=== PATIENT | female | born 1970 | race Caucasian/White ===

== ENCOUNTER 2018-04-15 21:25 | Emergency (ER) | END 2018-04-16 00:47 | disposition home or self-care (01) ==

== ENCOUNTER 2019-03-07 16:20 | Emergency (ER) | payer SELFPAY ==
[~2019-03-07] VITALS: Ht 162.6 cm; Wt 73.5 kg
[~2019-03-07 16:20] MED LIST: ACET-141 PO; AMLO-147 PO; DIPH25CA42 PO; FIORICET PO; IBUP200C11 PO
[2019-03-07 16:55] VITALS: BP 224/93; PULSE 64; RESP 18; Ht 162.6 cm; Wt 73.5 kg
== END 2019-03-07 17:45 | disposition left against medical advice (07) ==
LOC: E/R 16:20
DX: Z53.21 Procedure and treatment not carried out due to patient leaving prior to being seen by health care provider (principal)

== ENCOUNTER 2019-03-31 18:11 | Inpatient (IN) | payer OTHER ==
[~2019-03-31] VITALS: Ht 152.4 cm; Wt 76.6 kg
[2019-03-31] MEDS ORDERED: ONDANSETRON 4 MG INJ IV STA ×2 (19:30→20:20)
[2019-03-31] MEDS ORDERED: morphine 4 MG/ML VIAL IV STA (19:30)
[2019-03-31] MEDS ORDERED: SOD CHLORIDE 0.9% 1,000 ML IV STA (19:30)
[2019-03-31] MEDS ORDERED: KETOROLAC 30 MG INJ IV ONE (22:11)
[2019-03-31] MEDS ORDERED: LORAZEPAM 2 MG INJ IV ONE (22:30)
--- NOTE | 2019-03-31 22:40 | ERD ---
ER Documentation Chief Complaint Chief Complaint ap x's 1 week HPI Patient is a 48-year-old female with hypertension who presents with abdominal pain. It is left-sided abdominal pain and she feels "a big ball" in the left side of her abdomen. She had this a long time ago and nothing has worked for the past. It came back 45 days ago and has been constant. She has a colonoscopy scheduled for May [address] Parsons. He tried "a pain med" today. She does take an antacid for acid reflux. Upon review of old medical records this is the patient's 13th visit to the ER since 2008. ROS All systems reviewed and are negative except as per history of present illness. Medications Home Meds Active Scripts Acetamin/Butalbital/Caffeine* (Fioricet*) [id number] Tab, 1 TAB PO Q6H PRN for PAIN, #15 TAB Prov:PARAMJIT DUMONT MD 04/16/18 Reported Medications Diphenhydramine Hcl (Banophen) 25 Mg Capsule, 25 MG PO TID, CAP 04/15/18 Ibuprofen* (Advil*) 200 Mg Capsule, 200 MG PO Q6H PRN for PAIN, CAP 04/15/18 Acetaminophen* (Acetaminophen*) 500 MG Extra Strength Tablet, 500 MG PO Q4H PRN for PAIN AND OR ELEVATED TEMP, TAB 04/15/18 Amlodipine Besylate* (Amlodipine Besylate*) 10 Mg Tablet, 10 MG PO DAILY, #30 TAB 04/15/18 Allergies Allergies: Coded Allergies: No Known Drug Allergies (Unverified Allergy, Unknown, 04/15/18) PMhx/Soc History of Surgery: Yes (HYSTERECTOMY) Anesthesia Reaction: No Hx Neurological Disorder: No Hx Respiratory Disorders: No Hx Cardiac Disorders: Yes (HTN) Hx Psychiatric Problems: No Hx Miscellaneous Medical Probl: Yes (KIDNEY STONES, GASTRITIS) Hx Alcohol Use: No Hx Substance Use: No Hx Tobacco Use: No Smoking Status: Never smoker FmHx Family History: diabetes Physical Exam Vitals Vital Signs Date Temp Pulse Resp B/P (MAP) Pulse Ox O2 O2 Flow FiO2 Time Delivery Rate 03/31/19 97.1 82 18 171/83 97 18:31 (112) Physical Exam Const: Moderate distress Head: Atraumatic Eyes: Normal Conjunctiva ENT: Normal External Ears, Nose and Mouth. Neck: Full range of motion. No meningismus. Resp: Clear to auscultation bilaterally Cardio: Regular rate and rhythm, no murmurs Abd: Soft, left lower quadrant tenderness to palpation without rebound or gu arding Skin: No petechiae or rashes Back: No midline or flank tenderness Ext: No cyanosis, or edema Neur: Awake and alert Psych: Normal Mood and Affect Result Diagram: 03/31/19200103/31/191956 Results 24 hrs Laboratory Tests Test 03/31/19 19:50 03/31/19 19:57 03/31/19 20:02 Urine Color STRAW Urine Clarity CLEAR Urine pH 8.0 Urine Specific [place] 1.006 Urine Ketones NEGATIVE mg/dL Urine Nitrite NEGATIVE mg/dL Urine Bilirubin NEGATIVE mg/dL Urine Urobilinogen NEGATIVE mg/dL Urine Leukocyte Esterase NEGATIVE [place]/ul Urine Microscopic RBC 1 /HPF Urine Microscopic WBC 3 /HPF Urine Squamous Epithelial Cells FEW /HPF Urine Hemoglobin 1+ mg/dL Urine Glucose NEGATIVE mg/dL Urine Total Protein NEGATIVE mg/dl Sodium Level 140 mmol/L Potassium Level 3.5 mmol/L Chloride Level 104 mmol/L Carbon Dioxide Level 28 mmol/L Anion Gap 8 Blood Urea Nitrogen 14 mg/dl Creatinine 0.96 mg/dl Est Glomerular Filtrat > 60 mL/min Rate mL/min Glucose Level 108 mg/dl Calcium Level 9.6 mg/dl Total Bilirubin 0.6 mg/dl Direct Bilirubin 0.00 mg/dl Indirect Bilirubin 0.6 mg/dl Aspartate Amino 24 IU/L Transf (AST/SGOT) Alanine 25 IU/L Aminotransferase (ALT/SGPT) Alkaline Phosphatase 57 IU/L Total Protein 7.8 g/dl Albumin 4.3 g/dl Globulin 3.50 g/dl Albumin/Globulin Ratio 1.22 Lipase 77 U/L POC Beta HCG, Qualitative NEGATIVE White Blood Count 14.8 10^3/ul Red Blood Count 4.33 10^6/ul Hemoglobin 11.8 g/dl Hematocrit 36.9 % Mean Corpuscular Volume 85.2 fl Mean Corpuscular Hemoglobin 27.3 pg Mean Corpuscular 32.0 g/dl Hemoglobin Concent Red Cell Distribution Width 13.2 % Platelet Count 278 10^3/UL Mean Platelet Volume 9.7 fl Immature Granulocytes % 0.300 % Neutrophils % 57.3 % Lymphocytes % 34.6 % Monocytes % 6.2 % Eosinophils % 1.1 % Basophils % 0.5 % Nucleated Red Blood Cells % 0.0 /100WBC Immature Granulocytes # 0.050 10^3/ul Neutrophils # 8.5 10^3/ul Lymphocytes # 5.1 10^3/ul Monocytes # 0.9 10^3/ul Eosinophils # 0.2 10^3/ul Basophils # 0.1 10^3/ul Nucleated Red Blood Cells # 0.0 10^3/ul Current Medications Medications Dose Sig/Eliot Start Time Status Last (Trade) Ordered Route PRN Stop Time Admin Dose Reason Admin Sodium 1,000 ml @ Q1H STAT 03/31/19 DC 03/31/19 Chloride 1,000 mls/hr IV 19:30 19:54 03/31/19 20:29 Morphine 4 mg ONCE STAT 03/31/19 DC 03/31/19 Sulfate IV 19:30 19:54 (morphine) 03/31/19 19:56 Ondansetron 4 mg ONCE STAT 03/31/19 DC 03/31/19 HCl (Zofran IV 19:30 19:53 Inj) 03/31/19 19:56 Ondansetron 4 mg ONCE STAT 03/31/19 DC 03/31/19 HCl (Zofran IV 20:20 21:11 Inj) 03/31/19 20:21 Ketorolac 30 mg ONCE ONCE 03/31/19 DC 03/31/19 Tromethamine IV 22:11 22:15 (Toradol) 03/31/19 22:12 Lorazepam 0.5 mg ONCE ONCE 03/31/19 DC 03/31/19 (Ativan) IV 22:30 22:15 03/31/19 22:31 Ondansetron 4 mg BRIDGE ORDER 03/31/19 HCl (Zofran PRN IV 23:00 Inj) NAUSEA/VOMITI 04/01/19 22:59 NG 650 mg ER BRIDGE 03/31/19 Acetaminophen PRN PO 23:00 (Tylenol .MILD PAIN 04/01/19 22:59 Tab) 1-3 OR TEMP Procedures/MDM CT abdomen pelvis shows acute diverticulitis per radiology. Patient is a 48-year-old female who presents with acute diverticulitis. Her white blood cell count is elevated. There is no sign of perforation or obstruction at this time. The patient has persistent nausea and pain as well as vomiting and will be admitted to the care of Dr. Walton from the panel team to a medical surgical bed. The patient was given multiple doses of pain medication and antinausea medicine but is still having symptoms. I doubt appendicitis, cholecystitis, pancreatitis, or bowel obstruction. Departure Diagnosis: Primary Impression: Diverticulitis Additional Impression: Abdominal pain Abdominal location: left lower quadrant Qualified Codes: R10.32 - Left lower quadrant pain Condition: ADOLFO Barton MD March 31, 2019 22:40
[2019-03-31] MEDS ORDERED: ACETAMINOPHEN 325 MG TAB PO PRN (23:00)
[2019-03-31] MEDS ORDERED: ONDANSETRON 4 MG INJ IV PRN (23:00)
[2019-03-31] MEDS ORDERED: NACL 0.9% 3 ML SYG IV SCH (23:00)
[2019-03-31] MEDS ORDERED: morphine 2 MG INJ IV PRN (23:00)
[2019-03-31] MEDS: CIPROFLOXACIN 400MG/D5W 200 ML IVPB SCH (23:08)
[2019-03-31] MEDS: SOD CHLORIDE 0.9% 1,000 ML IV SCH (23:09)
[2019-04-01 00:47] VITALS: BP 157/70; PULSE 67; RESP 16
[2019-04-01 00:59] VITALS: Ht 152.4 cm; Wt 76.6 kg
--- NOTE | 2019-04-01 01:13 | HP ---
Date/Time of Note Date/Time of Note DATE: 04/01/19 TIME: 01:13 Assessment/Plan VTE Prophylaxis SCD applied (from Nsg): Yes Pharmacological prophylaxis: NA/contraindicated Pharm contraindication: low risk/ambulating Lines/Catheters IV Catheter Type (from Nrsg): Saline Lock Assessment/Plan Hospital Course This is a 48-year-old female being admitted to the [facility] floor for: #1 acute diverticulitis: No signs of perforation. Cipro and Flagyl IV. IV fluid hydration with normal saline. N.p.o. except meds. Bowel rest. Pain management. #2 chronic constipation: At the current time will hold MiraLAX given that she did take it at home and it aggravated her stomach. Will await improvement in her diverticulitis symptoms before initiating any further bowel regimen. #3 hypertension: Resume home blood pressure medications, PRN hydralazine #4 obesity: We will check a hemoglobin A1c, lipid panel, TSH #5 DVT GI prophylaxis: SCDs, no GI prophylaxis indicated Further treatment strategy will be implemented as per the clinical course Result Diagram: 03/31/19200103/31/191956 Results 24hrs Laboratory Tests Test 03/31/19 19:50 03/31/19 19:57 03/31/19 20:02 Urine Color STRAW Urine Clarity CLEAR Urine pH 8.0 Urine Specific [place] 1.006 Urine Ketones NEGATIVE Urine Nitrite NEGATIVE Urine Bilirubin NEGATIVE Urine Urobilinogen NEGATIVE Urine Leukocyte Esterase NEGATIVE Urine Microscopic RBC 1 Urine Microscopic WBC 3 Urine Squamous Epithelial Cells FEW Urine Hemoglobin 1+ H Urine Glucose NEGATIVE Urine Total Protein NEGATIVE Sodium Level 140 Potassium Level 3.5 Chloride Level 104 Carbon Dioxide Level 28 Anion Gap 8 Blood Urea Nitrogen 14 Creatinine 0.96 Est Glomerular Filtrat Rate mL/min > 60 Glucose Level 108 Calcium Level 9.6 Total Bilirubin 0.6 Direct Bilirubin 0.00 Indirect Bilirubin 0.6 Aspartate Amino Transf (AST/SGOT) 24 Alanine Aminotransferase (ALT/SGPT) 25 Alkaline Phosphatase 57 Total Protein 7.8 Albumin 4.3 Globulin 3.50 H Albumin/Globulin Ratio 1.22 Lipase 77 POC Beta HCG, Qualitative NEGATIVE White Blood Count 14.8 #H Red Blood Count 4.33 Hemoglobin 11.8 L Hematocrit 36.9 L Mean Corpuscular Volume 85.2 Mean Corpuscular Hemoglobin 27.3 L Mean Corpuscular Hemoglobin Concent 32.0 Red Cell Distribution Width 13.2 Platelet Count 278 Mean Platelet Volume 9.7 Immature Granulocytes % 0.300 Neutrophils % 57.3 Lymphocytes % 34.6 Monocytes % 6.2 Eosinophils % 1.1 Basophils % 0.5 Nucleated Red Blood Cells % 0.0 Immature Granulocytes # 0.050 H Neutrophils # 8.5 H Lymphocytes # 5.1 H Monocytes # 0.9 Eosinophils # 0.2 Basophils # 0.1 Nucleated Red Blood Cells # 0.0 HPI/ROS Admit Date/Time Admit Date/Time March 31, 2019 at 22:32 Hx of Present Illness Chief complaint: Abdominal pain This is a 48-year female with a history of hypertension as well as constipation who presented to the emergency department complaining of abdominal pain x1 week. Patient reported abdominal pain across her lower abdomen and a ball-like sensation in her left side. She reports that she has been dealing with constipation for sometimes and usually takes MiraLAX. She did report that she took MiraLAX recently but it seemed to aggravate her symptoms. She does follow with a GI doctor. She does have an upcoming colonoscopy with her GI doctor in April. She did report subjective fever at home as well as nausea and vomiting. Allergies: Nuts Medications: See MAR ROS Const: As per HPI Eyes : No pain discharge or redness or change in visual acuity ENT: No pain, sore throat, congestion, congestion, dysphagia or discharge Respiratory: No shortness of breath, cough, sputum, wheezing, or pleuritic pain Cardiovascular: No chest pain, palpitation, PND, or edema GI : As per HPI Genitourinary: No dysuria, hematuria, flank pain , discharge or CVA tenderness Musculoskeletal: No joint pain, back pain, neck pain, restricted range of motion in neck or joints Skin: No rash, bruising or hives Neuro: No headache, dizziness, syncope, seizure, focal weakness Endocrine: No polyuria, polydipsia, temperature intolerance Psych: No hallucination, depression, anxiety or suicidal ideation PMH/Family/Social Past Medical History Hypertension, gastritis, constipation Medications Current Medications Ondansetron HCl (Zofran Inj) 4 mg BRIDGE ORDER PRN IV NAUSEA/VOMITING; Start 03/31/19 at 23:00; Stop 04/01/19 at 22:59 Acetaminophen (Tylenol Tab) 650 mg ER BRIDGE PRN PO .MILD PAIN 1-3 OR TEMP; Start 03/31/19 at 23:00; Stop 04/01/19 at 22:59 Sodium Chloride 1,000 ml @ 100 mls/hr Q10H IV Last administered on 03/31/19at 23:09; Admin Dose 100 MLS/HR; Start 03/31/19 at 22:41 IV Flush (NS 3 ml) 3 ml PER PROTOCOL IV ; Start 03/31/19 at 23:00 Ondansetron HCl (Zofran Inj) 4 mg Q6H PRN IV NAUSEA/VOMITING; Start 03/31/19 at 23:00 Acetaminophen (Tylenol Tab) 650 mg Q6H PRN PO .PAIN 1-3 OR TEMP; Start 03/31/19 at 23:00 Morphine Sulfate (morphine) 2 mg Q4H PRN IV .SEVERE PAIN 7-10; Start 03/31/19 at 23:00 Ciprofloxacin/ Dextrose 200 ml @ 200 mls/hr Q12 IVPB Last administered on 03/31/19at 23:08; Admin Dose 200 MLS/HR; Start 03/31/19 at 23:00 Metronidazole 100 ml @ 100 mls/hr Q6 IVPB ; Start 04/01/19 at 00:00 Coded Allergies: nut - unspecified (Verified Allergy, Mild, 04/01/19) Allergic to nuts Past Surgical History Hysterectomy, left breast biopsy, hernia repair Family History Significant Family History: no pertinent family hx Social History Alcohol Use: none Smoking Status: Never smoker Drug Use: none Exam/Review of Systems Vital Signs Vitals Vital Signs Date Temp Pulse Resp B/P (MAP) Pulse Ox O2 O2 Flow FiO2 Time Delivery Rate 04/01/19 97.8 67 16 157/70 96 00:47 (99) 03/31/19 Room Air 23:46 Exam Exam General: Patient is currently lying in bed in mild distress from abdominal pain HEENT: Atraumatic, normocephalic. The pupils are equal, round and reactive. Extraocular motor are intact Neck: Supple with full range of motion. No rigidity or meningismus Chest: Nontender Lungs: Clear to auscultation bilaterally no crackles rales or wheezing Heart: Normal S1-S2, Regular rhythm and rate. No murmur, S3, or S4 Abdomen: Obese, soft , tenderness palpation across the lower abdominal quadrant greater on the left side, normal bowel sounds are present. No guarding no rebound tenderness , No masses or organomegaly. No costovertebral temporal angle mass Extremities: Normal to inspection, no edema no cyanosis Neurologic: Normal mental status, speech normal, cranial nerves II through XII are intact, motor and sensory are intact, no focal weakness Additional Comments PROCEDURE: CT ABDOMEN AND PELVIS WITHOUT CONTRAST. CLINICAL INDICATION: Abdominal pain TECHNIQUE: CT scan of the abdomen and pelvis without contrast was performed on a multidetector high-resolution CT scanner. The patient was scanned without intravenous contrast. Coronal and sagittal reformatted images were obtained from the axial source images. Images were reviewed on a high-resolution PACS workstation. The total exam CTDI equals 13.4 mGy and the total exam DLP equals 756.5 mGy-cm. One or more of the following dose reduction techniques were used: Automated exposure control. Adjustment of the mA and/or kV according to patient size. Use of iterative reconstruction technique. DICOM images are available COMPARISON: None FINDINGS: CT abdomen: The lung bases are clear. The heart size is within normal limits. There is no significant pericardial effusion. Hepatic morphology is within normal limits. There is diffuse fatty infiltration of the liver. No gross contour deforming masses. The gallbladder is within normal limits. No evidence of intrahepatic or extrahepatic biliary dilatation. The spleen and pancreas are within normal limits. Both adrenal glands are within normal limits. Both kidneys are in anatomic position. There is a left-sided nonobstructing stone measuring 4.1 mm. No evidence of ureteric calculi. No evidence of obstructive uropathy. The visualized GI tract demonstrate normal caliber loops of small and large bowel. No evidence of bowel obstruction. Stool filled loops of large bowel suggestive of constipation. The appendix is within limits. There is focal diverticulitis involving the distal left colon with minimal adjacent fatty stranding. The unenhanced aorta is unremarkable. No significant retroperitoneal lymphadenopathy. CT pelvis: Bladder is within normal limits. Uterus is within normal limits. Rectosigmoid colon demonstrates diverticulosis. No significant free fluid. No significant pelvic lymphadenopathy. The visualized osseous structures appears to be within normal limits. IMPRESSION: 1. FOCAL MILD DIVERTICULITIS INVOLVING THE DISTAL LEFT COLON WITH MINIMAL AD JACENT FATTY STRANDING. NO EVIDENCE OF PERFORATION OR FOCAL FLUID COLLECTIONS. 2. No evidence of bowel obstruction. Stool filled loops of large bowel suggestive of constipation. The appendix is within normal limits. 3. Fatty liver. 4. No evidence of free fluid or free air. No gross focal fluid collections. RPTAT: AAPP Physician Reba Date Time Electronically viewed and signed by Alcira Easley Physician on 03/31/2019 22:02 JL/ CC: ADOLFO MARIE MD [id number] SIDRA CARPIO April 01, 2019 01:13
[2019-04-01] MEDS ORDERED: ENAL20TA PO (01:14)
[2019-04-01] MEDS ORDERED: HYDR12.53 PO (01:14)
[2019-04-01] MEDS ORDERED: LORA10TA3 PO (01:14)
[2019-04-01] MEDS ORDERED: POLY238P32 PO (01:14)
[2019-04-01] MEDS ORDERED: OXYB5TAB7 PO (01:14)
[2019-04-01] MEDS ORDERED: PANT40TA4 PO (01:14)
[2019-04-01] MEDS ORDERED: ERGO500013 PO (01:14)
[2019-04-01] MEDS: SOD CHLORIDE 0.9% 1,000 ML IV SCH ×2 (01:28→16:32)
[2019-04-01] MEDS: metroNIDAZOLE 500 MG/NS (PMX) 100 ML IVPB SCH ×4 (01:29→17:14)
[2019-04-01 02:57] VITALS: BP 108/53; PULSE 58; RESP 18
[2019-04-01] MEDS: ONDANSETRON 4 MG INJ IV PRN ×2 (04:52→12:38)
[2019-04-01 07:15] VITALS: BP 131/65; PULSE 66; RESP 16
--- NOTE | 2019-04-01 09:47 | PN ---
Date/Time of Note Date/Time of Note DATE: 04/01/19 TIME: 09:47 Assessment/Plan VTE Prophylaxis SCD applied (from Nsg): Yes Pharmacological prophylaxis: NA/contraindicated Pharm contraindication: low risk/ambulating Lines/Catheters IV Catheter Type (from Nrsg): Peripheral IV Urinary Cath still in place: No Assessment/Plan Assessment/Plan 1. Acute diverticulitis - seen on CT results - continue on IV antibiotics and when pain improves and tolerating PO diet, will switch to PO antibiotics and d/c home - has appointment with Dr. Parsons for EGD/colonoscopy next month. Will need to call office given acute diverticulitis episode 2. Constipation - bowel regime on board 3. hypertension - stable - continue home medications 4. Disposition - Monitor for improvement in abdominal pain and will advance diet once able Result Diagram: 04/01/1943904/01/19439 Results 24hrs Laboratory Tests Test 03/31/19 19:50 03/31/19 19:57 03/31/19 20:02 04/01/19 04:40 Urine Color STRAW Urine Clarity CLEAR Urine pH 8.0 Urine Specific 1.006 [place] Urine Ketones NEGATIVE Urine Nitrite NEGATIVE Urine Bilirubin NEGATIVE Urine Urobilinogen NEGATIVE Urine Leukocyte NEGATIVE Esterase Urine Microscopic 1 RBC Urine Microscopic 3 WBC Urine Squamous FEW Epithelial Cells Urine Hemoglobin 1+ H Urine Glucose NEGATIVE Urine Total Protein NEGATIVE Sodium Level 140 141 Potassium Level 3.5 4.0 Chloride Level 104 108 Carbon Dioxide Level 28 27 Anion Gap 8 6 Blood Urea Nitrogen 14 15 Creatinine 0.96 0.69 Est Glomerular > 60 > 60 Filtrat Rate mL/min Glucose Level 108 133 Calcium Level 9.6 8.3 L Total Bilirubin 0.6 0.6 Direct Bilirubin 0.00 0.00 Indirect Bilirubin 0.6 0.6 Aspartate Amino 24 19 Transf (AST/SGOT) Alanine 25 24 Aminotransferase (AL T/SGPT) Alkaline Phosphatase 57 43 Total Protein 7.8 6.0 #L Albumin 4.3 3.3 # Globulin 3.50 H 2.70 Albumin/Globulin 1.22 1.22 Ratio Lipase 77 POC Beta HCG, NEGATIVE Qualitative White Blood Count 14.8 #H 11.9 H Red Blood Count 4.33 3.89 L Hemoglobin 11.8 L 10.5 L Hematocrit 36.9 L 33.6 L Mean Corpuscular 85.2 86.4 Volume Mean Corpuscular 27.3 L 27.0 L Hemoglobin Mean Corpuscular 32.0 31.3 L Hemoglobin Concent Red Cell 13.2 13.5 Distribution Width Platelet Count 278 252 Mean Platelet Volume 9.7 10.1 Immature 0.300 0.400 Granulocytes % Neutrophils % 57.3 60.2 Lymphocytes % 34.6 32.3 Monocytes % 6.2 5.5 Eosinophils % 1.1 1.1 Basophils % 0.5 0.5 Nucleated Red Blood 0.0 0.0 Cells % Immature 0.050 H 0.050 H Granulocytes # Neutrophils # 8.5 H 7.2 Lymphocytes # 5.1 H 3.8 H Monocytes # 0.9 0.7 Eosinophils # 0.2 0.1 Basophils # 0.1 0.1 Nucleated Red Blood 0.0 0.0 Cells # Hemoglobin A1c 6.3 H Magnesium Level 1.8 Triglycerides Level 122 Cholesterol Level 152 LDL Cholesterol, 85 Calculated HDL Cholesterol 43 Cholesterol/HDL 3.5 Ratio Thyroid Stimulating 2.050 Hormone (TSH) Subjective 24 Hr Interval Summary Free Text/Dictation Patient still with pain and mild nausea but requesting to drink water. Also complaining of constipation for the past 3 days. Exam/Review of Systems Exam Vitals Vital Signs Date Temp Pulse Resp B/P (MAP) Pulse Ox O2 O2 Flow FiO2 Time Delivery Rate 04/01/19 97.9 66 16 131/65 95 Room Air 07:15 (87) Intake and Output 03/31/19 03/31/19 04/01/19 1515:00 23:00 07:00 IntakeIntake Total 1400 ml BalanceBalance 1400 ml Exam General: Patient is sitting up in bed, mild distress secondary to pain Neck: Supple Chest: Nontender Lungs: Clear to auscultation bilaterally no crackles rales or wheezing Heart: Normal S1-S2, Regular rhythm and rate. No murmur, S3, or S4 Abdomen: Obese, soft , tenderness palpation LLQ, normal bowel sounds are present. No guarding no rebound tenderness Extremities: Normal to inspection, no edema no cyanosis Results Results 24hrs Laboratory Tests Test 03/31/19 19:50 03/31/19 19:57 03/31/19 20:02 04/01/19 04:40 Urine Color STRAW Urine Clarity CLEAR Urine pH 8.0 Urine Specific 1.006 [place] Urine Ketones NEGATIVE Urine Nitrite NEGATIVE Urine Bilirubin NEGATIVE Urine Urobilinogen NEGATIVE Urine Leukocyte NEGATIVE Esterase Urine Microscopic 1 RBC Urine Microscopic 3 WBC Urine Squamous FEW Epithelial Cells Urine Hemoglobin 1+ H Urine Glucose NEGATIVE Urine Total Protein NEGATIVE Sodium Level 140 141 Potassium Level 3.5 4.0 Chloride Level 104 108 Carbon Dioxide Level 28 27 Anion Gap 8 6 Blood Urea Nitrogen 14 15 Creatinine 0.96 0.69 Est Glomerular > 60 > 60 Filtrat Rate mL/min Glucose Level 108 133 Calcium Level 9.6 8.3 L Total Bilirubin 0.6 0.6 Direct Bilirubin 0.00 0.00 Indirect Bilirubin 0.6 0.6 Aspartate Amino 24 19 Transf (AST/SGOT) Alanine 25 24 Aminotransferase (AL T/SGPT) Alkaline Phosphatase 57 43 Total Protein 7.8 6.0 #L Albumin 4.3 3.3 # Globulin 3.50 H 2.70 Albumin/Globulin 1.22 1.22 Ratio Lipase 77 POC Beta HCG, NEGATIVE Qualitative White Blood Count 14.8 #H 11.9 H Red Blood Count 4.33 3.89 L Hemoglobin 11.8 L 10.5 L Hematocrit 36.9 L 33.6 L Mean Corpuscular 85.2 86.4 Volume Mean Corpuscular 27.3 L 27.0 L Hemoglobin Mean Corpuscular 32.0 31.3 L Hemoglobin Concent Red Cell 13.2 13.5 Distribution Width Platelet Count 278 252 Mean Platelet Volume 9.7 10.1 Immature 0.300 0.400 Granulocytes % Neutrophils % 57.3 60.2 Lymphocytes % 34.6 32.3 Monocytes % 6.2 5.5 Eosinophils % 1.1 1.1 Basophils % 0.5 0.5 Nucleated Red Blood 0.0 0.0 Cells % Immature 0.050 H 0.050 H Granulocytes # Neutrophils # 8.5 H 7.2 Lymphocytes # 5.1 H 3.8 H Monocytes # 0.9 0.7 Eosinophils # 0.2 0.1 Basophils # 0.1 0.1 Nucleated Red Blood 0.0 0.0 Cells # Hemoglobin A1c 6.3 H Magnesium Level 1.8 Triglycerides Level 122 Cholesterol Level 152 LDL Cholesterol, 85 Calculated HDL Cholesterol 43 Cholesterol/HDL 3.5 Ratio Thyroid Stimulating 2.050 Hormone (TSH) Medications Medication Current Medications Ondansetron HCl (Zofran Inj) 4 mg BRIDGE ORDER PRN IV NAUSEA/VOMITING; Start 03/31/19 at 23:00; Stop 04/01/19 at 22:59 Sodium Chloride 1,000 ml @ 100 mls/hr Q10H IV Last administered on 04/01/19at 01:28; Admin Dose 100 MLS/HR; Start 03/31/19 at 22:41 IV Flush (NS 3 ml) 3 ml PER PROTOCOL IV ; Start 03/31/19 at 23:00 Ondansetron HCl (Zofran Inj) 4 mg Q6H PRN IV NAUSEA/VOMITING Last administered on 04/01/19at 04:52; Admin Dose 4 MG; Start 03/31/19 at 23:00 Acetaminophen (Tylenol Tab) 650 mg Q6H PRN PO .PAIN 1-3 OR TEMP; Start 03/31/19 at 23:00 Morphine Sulfate (morphine) 2 mg Q4H PRN IV .SEVERE PAIN 7-10 Last administered on 04/01/19at 04:52; Admin Dose 2 MG; Start 03/31/19 at 23:00 Ciprofloxacin/ Dextrose 200 ml @ 200 mls/hr Q12 IVPB Last administered on 03/31/19at 23:08; Admin Dose 200 MLS/HR; Start 03/31/19 at 23:00 Metronidazole 100 ml @ 100 mls/hr Q6 IVPB Last administered on 04/01/19at 05:41; Admin Dose 100 MLS/HR; Start 04/01/19 at 00:00 Polyethylene Glycol (Miralax) 17 gm DAILY PRN PO CONSTIPATION; Start 04/01/19 at 10:00; Status UNV Docusate Sodium (Colace) 100 mg BID PRN PO CONSTIPATION; Start 04/01/19 at 10:00; Status KEYSHAV MONA SOLIS MD April 01, 2019 09:47
[2019-04-01] MEDS ORDERED: POLYETHYLENE GLYCOL 17 GM PACKET PO PRN (10:00)
[2019-04-01] MEDS: POLYETHYLENE GLYCOL 17 GM PACKET PO SCH (11:12)
[2019-04-01] MEDS: DOCUSATE SODIUM 100 MG CAP PO PRN (11:12)
[2019-04-01] MEDS: CIPROFLOXACIN 400MG/D5W 200 ML IVPB SCH ×2 (11:13→21:40)
[2019-04-01] MEDS ORDERED: LORATADINE 10 MG TAB PO SCH (11:30)
[2019-04-01] MEDS ORDERED: ENALAPRIL 20 MG TAB PO SCH (11:30)
[2019-04-01] MEDS ORDERED: HYDROCHLOROTHIAZIDE 12.5 MG CAP PO SCH (12:00)
[2019-04-01] MEDS: PANTOPRAZOLE (EC) 40 MG TAB PO SCH (12:38)
[2019-04-01] MEDS ORDERED: LORATADINE 10 MG TAB PO PRN (13:00)
[2019-04-01 14:00] VITALS: BP 136/60; PULSE 73; RESP 16
--- NOTE | 2019-04-01 14:25 | RADRPT ---
Vent Rate: 86 bpm RR Interval: 0 msec [place] Interval: 150 msec QRS Duration: 90 msec QT Interval: 402 msec QTC Interval: 481 msec P-R-T [place]: 58 - 33 - 28 degrees Normal sinus rhythm Prolonged QT Abnormal ECG Electronically Signed By: [facility]
[2019-04-01] MEDS ORDERED: MINERAL OIL 133 ML ENEMA PR PRN (16:30)
[2019-04-01] MEDS ORDERED: BISACODYL 10 MG SUPP PR PRN (16:30)
[2019-04-01] MEDS ORDERED: LACTULOSE 30ML CUP PO ONE (16:30)
[2019-04-01 20:20] VITALS: BP 161/70; PULSE 63; RESP 20
[2019-04-01] MEDS: HYDROCHLOROTHIAZIDE 12.5 MG CAP PO SCH (21:39)
[2019-04-01] MEDS: ENALAPRIL 20 MG TAB PO SCH (21:40)
[2019-04-02] MEDS: metroNIDAZOLE 500 MG/NS (PMX) 100 ML IVPB SCH ×4 (00:10→17:39)
[2019-04-02] MEDS: ACETAMINOPHEN 325 MG TAB PO PRN (02:04)
[2019-04-02 02:23] VITALS: BP 136/63; PULSE 62; RESP 16
[2019-04-02] MEDS: SOD CHLORIDE 0.9% 1,000 ML IV SCH ×2 (04:18→05:20)
[2019-04-02] MEDS: PANTOPRAZOLE (EC) 40 MG TAB PO SCH (05:21)
[2019-04-02 08:05] VITALS: BP 125/54; PULSE 54; RESP 16
[2019-04-02] MEDS: DOCUSATE SODIUM 100 MG CAP PO PRN (08:24)
[2019-04-02] MEDS: CIPROFLOXACIN 400MG/D5W 200 ML IVPB SCH ×2 (08:24→20:52)
[2019-04-02] MEDS: POLYETHYLENE GLYCOL 17 GM PACKET PO SCH (08:24)
--- NOTE | 2019-04-02 13:37 | PN ---
Date/Time of Note Date/Time of Note DATE: 04/02/19 TIME: 13:35 Assessment/Plan VTE Prophylaxis Risk score (from Nsg)>0 risk: 3 SCD applied (from Ns): Yes Pharmacological prophylaxis: NA/contraindicated Pharm contraindication: low risk/ambulating Lines/Catheters IV Catheter Type (from Nrsg): Peripheral IV Urinary Cath still in place: No Assessment/Plan Assessment/Plan 1. Acute diverticulitis - will continue on clear diet and monitor for improvement in pain. Discussed need to reschedule outpatient colonoscopy. - seen on CT results - continue on IV antibiotics and when pain improves and tolerating PO diet, will switch to PO antibiotics and d/c home 2. Constipation - bowel regime on board - had 3 BMs yesterday 3. hypertension - stable - continue home medications 4. Disposition - Monitor for improvement in abdominal pain and will advance diet once able Result Diagram: 04/02/19 0530 04/01/19 0440 Results 24hrs Laboratory Tests Test 04/02/19 05:30 White Blood Count 9.6 Red Blood Count 3.79 L Hemoglobin 10.2 L Hematocrit 32.5 L Mean Corpuscular Volume 85.8 Mean Corpuscular Hemoglobin 26.9 L Mean Corpuscular Hemoglobin Concent 31.4 L Red Cell Distribution Width 13.5 Platelet Count 238 Mean Platelet Volume 10.2 Immature Granulocytes % 0.300 Neutrophils % 50.6 Lymphocytes % 40.9 Monocytes % 6.1 Eosinophils % 1.5 Basophils % 0.6 Nucleated Red Blood Cells % 0.0 Immature Granulocytes # 0.030 Neutrophils # 4.9 Lymphocytes # 3.9 H Monocytes # 0.6 Eosinophils # 0.1 Basophils # 0.1 Nucleated Red Blood Cells # 0.0 Subjective 24 Hr Interval Summary Free Text/Dictation Patient states she had 3 BMs yesterday and feeling better. Still with discomfort with eating and wants to hold off on advancing diet. Exam/Review of Systems Exam Vitals Vital Signs Date Temp Pulse Resp B/P (MAP) Pulse Ox O2 O2 Flow FiO2 Time Delivery Rate 04/02/19 97.8 54 16 125/54 97 08:05 (77) 04/01/19 Room Air 14:00 Intake and Output 04/01/19 04/01/19 04/02/19 1515:00 23:00 07:00 IntakeIntake Total 500 ml 1780 ml 100 ml BalanceBalance 500 ml 1780 ml 100 ml Exam General: Patient is sitting up in bed, mild distress secondary to pain Eyes: mild scleral icterus Neck: Supple Chest: Nontender Lungs: Clear to auscultation bilaterally no crackles rales or wheezing Heart: Normal S1-S2, Regular rhythm and rate. No murmur, S3, or S4 Abdomen: Obese, soft , mild tenderness to palpation LLQ, normal bowel sounds are present. No guarding no rebound tenderness Extremities: Normal to inspection, no edema no cyanosis Results Results 24hrs Laboratory Tests Test 04/02/19 05:30 White Blood Count 9.6 Red Blood Count 3.79 L Hemoglobin 10.2 L Hematocrit 32.5 L Mean Corpuscular Volume 85.8 Mean Corpuscular Hemoglobin 26.9 L Mean Corpuscular Hemoglobin Concent 31.4 L Red Cell Distribution Width 13.5 Platelet Count 238 Mean Platelet Volume 10.2 Immature Granulocytes % 0.300 Neutrophils % 50.6 Lymphocytes % 40.9 Monocytes % 6.1 Eosinophils % 1.5 Basophils % 0.6 Nucleated Red Blood Cells % 0.0 Immature Granulocytes # 0.030 Neutrophils # 4.9 Lymphocytes # 3.9 H Monocytes # 0.6 Eosinophils # 0.1 Basophils # 0.1 Nucleated Red Blood Cells # 0.0 Medications Medication Current Medications Sodium Chloride 1,000 ml @ 100 mls/hr Q10H IV Last administered on 04/02/19 05:20; Admin Dose 100 MLS/HR; Start 03/31/19 at 22:41 IV Flush (NS 3 ml) 3 ml PER PROTOCOL IV ; Start 03/31/19 at 23:00 Ondansetron HCl (Zofran Inj) 4 mg Q6H PRN IV NAUSEA/VOMITING Last administered on 04/01/19at 12:38; Admin Dose 4 MG; Start 03/31/19 at 23:00 Acetaminophen (Tylenol Tab) 650 mg Q6H PRN PO .PAIN 1-3 OR TEMP Last administered on 04/02/19at 02:04; Admin Dose 650 MG; Start 03/31/19 at 23:00 Morphine Sulfate (morphine) 2 mg Q4H PRN IV .SEVERE PAIN 7-10 Last administered on 04/01/19 04:52; Admin Dose 2 MG; Start 03/31/19 at 23:00 Ciprofloxacin/ Dextrose 200 ml @ 200 mls/hr Q12 IVPB Last administered on 04/02/19 08:24; Admin Dose 200 MLS/HR; Start 03/31/19 at 23:00 Metronidazole 100 ml @ 100 mls/hr Q6 IVPB Last administered on 04/02/19 12:47; Admin Dose 100 MLS/HR; Start 04/01/19 at 00:00 Docusate Sodium (Colace) 100 mg BID PRN PO CONSTIPATION Last administered on 04/02/19 08:24; Admin Dose 100 MG; Start 04/01/19 at 10:00 Polyethylene Glycol (Miralax) 17 gm DAILY PO Last administered on 04/02/19 08:24; Admin Dose 17 GM; Start 04/01/19 at 10:00 Ergocalciferol (Drisdol) 1 unit Mo@0900 PO ; Start 04/04/19 at 09:00 Pantoprazole (Protonix Tab) 40 mg DAILY@0600 PO Last administered on 04/02/19 05:21; Admin Dose 40 MG; Start 04/01/19 at 11:30 Enalapril Maleate (Vasotec) 20 mg QHS PO Last administered on 04/01/19 21:40; Admin Dose 20 MG; Start 04/01/19 at 21:00 Hydrochlorothiazide (Hydrochlorothiazide) 12.5 mg QHS PO Last administered on 04/01/19 21:39; Admin Dose 12.5 MG; Start 04/01/19 at 21:00 Loratadine (Claritin) 10 mg DAILY PRN PO ALLERGIC REACTION; Start 04/01/19 at 13:00 Bisacodyl (Dulcolax Supp) 10 mg DAILY PRN [place] CONSTIPATION Last administered on 04/01/19 16:31; Admin Dose 10 MG; Start 04/01/19 at 16:30 Mineral Oil (Fleet Mineral Oil Enema) 133 ml DAILY PRN [place] constipation; Start 04/01/19 at 16:30 MONA SOLIS MD April 02, 2019 13:37
[2019-04-02 14:51] VITALS: BP 120/67; PULSE 63; RESP 18
[2019-04-02 19:52] VITALS: BP 146/65; PULSE 61; RESP 18
[2019-04-02] MEDS: ENALAPRIL 20 MG TAB PO SCH (20:53)
[2019-04-02] MEDS: HYDROCHLOROTHIAZIDE 12.5 MG CAP PO SCH (20:53)
[2019-04-03] MEDS: SOD CHLORIDE 0.9% 1,000 ML IV SCH ×3 (00:35→14:16)
[2019-04-03] MEDS: metroNIDAZOLE 500 MG/NS (PMX) 100 ML IVPB SCH ×2 (00:35→05:42)
[2019-04-03 02:14] VITALS: BP 122/56; PULSE 65; RESP 20
[2019-04-03] MEDS: ACETAMINOPHEN 325 MG TAB PO PRN (05:42)
[2019-04-03] MEDS: PANTOPRAZOLE (EC) 40 MG TAB PO SCH (05:42)
[2019-04-03 08:13] VITALS: BP 115/63; PULSE 67; RESP 16
[2019-04-03] MEDS: POLYETHYLENE GLYCOL 17 GM PACKET PO SCH (08:45)
[2019-04-03] MEDS: CIPROFLOXACIN 400MG/D5W 200 ML IVPB SCH (08:45)
--- NOTE | 2019-04-03 10:52 | PN ---
Date/Time of Note Date/Time of Note DATE: 04/03/19 TIME: 10:48 Assessment/Plan VTE Prophylaxis Risk score (from Ns)>0 risk: 1 SCD applied (from Ns): Yes Pharmacological prophylaxis: NA/contraindicated Pharm contraindication: low risk/ambulating Lines/Catheters IV Catheter Type (from [facility]): Peripheral IV Urinary Cath still in place: No Assessment/Plan Assessment/Plan 1. Acute diverticulitis - will advance diet to soft bland and if tolerating regular for dinner. If no discomfort with PO intake will d/c home - transition to PO antibiotics - seen on CT results - discussed following up with GI for colonoscopy in at least 8 weeks once diverticulitis resolves 2. Constipation- resolved - bowel regime on board - had 3 BMs yesterday 3. hypertension - stable - continue home medications 4. Disposition - Advance diet to soft and if tolerating and no further issues, will d/c home on PO antibiotics. Result Diagram: 04/03/19 0512 04/02/19 1355 Results 24hrs Laboratory Tests Test 04/02/19 13:55 04/03/19 05:12 Sodium Level 138 Potassium Level 3.9 Chloride Level 108 Carbon Dioxide Level 25 Anion Gap 5 Blood Urea Nitrogen 6 #L Creatinine 0.58 Est Glomerular Filtrat Rate mL/min > 60 Glucose Level 109 Calcium Level 8.6 Total Bilirubin 0.7 Direct Bilirubin 0.00 Indirect Bilirubin 0.7 Aspartate Amino Transf (AST/SGOT) 31 Alanine Aminotransferase (ALT/SGPT) 21 Alkaline Phosphatase 35 L Total Protein 7.0 # Albumin 3.8 Globulin 3.20 Albumin/Globulin Ratio 1.18 White Blood Count 10.4 Red Blood Count 3.97 L Hemoglobin 10.8 L Hematocrit 33.7 L Mean Corpuscular Volume 84.9 Mean Corpuscular Hemoglobin 27.2 L Mean Corpuscular Hemoglobin Concent 32.0 Red Cell Distribution Width 13.2 Platelet Count 254 Mean Platelet Volume 10.3 Immature Granulocytes % 0.300 Neutrophils % 53.9 Lymphocytes % 37.5 Monocytes % 6.6 Eosinophils % 1.3 Basophils % 0.4 Nucleated Red Blood Cells % 0.0 Immature Granulocytes # 0.030 Neutrophils # 5.6 Lymphocytes # 3.9 H Monocytes # 0.7 Eosinophils # 0.1 Basophils # 0.0 Nucleated Red Blood Cells # 0.0 Subjective 24 Hr Interval Summary Free Text/Dictation Patient states shes feeling epigastric discomfort and bloating. Believes its from not eating solid foods. Also concerned about irritation in IV site after given antibiotics. Exam/Review of Systems Exam Vitals Vital Signs Date Temp Pulse Resp B/P (MAP) Pulse Ox O2 O2 Flow FiO2 Time Delivery Rate 04/03/19 98.0 67 16 115/63 97 08:13 (80) 04/01/19 Room Air 14:00 Intake and Output 04/02/19 04/02/19 04/03/19 1515:00 23:00 07:00 IntakeIntake Total 300 ml 2600 ml 1500 ml BalanceBalance 300 ml 2600 ml 1500 ml Exam General: no acute distress, answering questions appropriately Neck: Supple Chest: Nontender Lungs: Clear to auscultation bilaterally no crackles rales or wheezing Heart: Normal S1-S2, Regular rhythm and rate. No overt murmurs appreciated on auscultation Abdomen: Soft, nontender, bloating, no rebound or guarding. Normal bowel sounds. Extremities: Normal to inspection, no edema no cyanosis Results Results 24hrs Laboratory Tests Test 04/02/19 13:55 04/03/19 05:12 Sodium Level 138 Potassium Level 3.9 Chloride Level 108 Carbon Dioxide Level 25 Anion Gap 5 Blood Urea Nitrogen 6 #L Creatinine 0.58 Est Glomerular Filtrat Rate mL/min > 60 Glucose Level 109 Calcium Level 8.6 Total Bilirubin 0.7 Direct Bilirubin 0.00 Indirect Bilirubin 0.7 Aspartate Amino Transf (AST/SGOT) 31 Alanine Aminotransferase (ALT/SGPT) 21 Alkaline Phosphatase 35 L Total Protein 7.0 # Albumin 3.8 Globulin 3.20 Albumin/Globulin Ratio 1.18 White Blood Count 10.4 Red Blood Count 3.97 L Hemoglobin 10.8 L Hematocrit 33.7 L Mean Corpuscular Volume 84.9 Mean Corpuscular Hemoglobin 27.2 L Mean Corpuscular Hemoglobin Concent 32.0 Red Cell Distribution Width 13.2 Platelet Count 254 Mean Platelet Volume 10.3 Immature Granulocytes % 0.300 Neutrophils % 53.9 Lymphocytes % 37.5 Monocytes % 6.6 Eosinophils % 1.3 Basophils % 0.4 Nucleated Red Blood Cells % 0.0 Immature Granulocytes # 0.030 Neutrophils # 5.6 Lymphocytes # 3.9 H Monocytes # 0.7 Eosinophils # 0.1 Basophils # 0.0 Nucleated Red Blood Cells # 0.0 Medications Medication Current Medications Sodium Chloride 1,000 ml @ 100 mls/hr Q10H IV Last administered on 04/03/19 00:35; Admin Dose 100 MLS/HR; Start 03/31/19 at 22:41 IV Flush (NS 3 ml) 3 ml PER PROTOCOL IV ; Start 03/31/19 at 23:00 Ondansetron HCl (Zofran Inj) 4 mg Q6H PRN IV NAUSEA/VOMITING Last administered on 04/01/19 12:38; Admin Dose 4 MG; Start 03/31/19 at 23:00 Acetaminophen (Tylenol Tab) 650 mg Q6H PRN PO .PAIN 1-3 OR TEMP Last admin istered on 04/03/19 05:42; Admin Dose 650 MG; Start 03/31/19 at 23:00 Morphine Sulfate (morphine) 2 mg Q4H PRN IV .SEVERE PAIN 7-10 Last administered on 04/01/19 04:52; Admin Dose 2 MG; Start 03/31/19 at 23:00 Ciprofloxacin/ Dextrose 200 ml @ 200 mls/hr Q12 IVPB Last administered on 04/03/19 08:45; Admin Dose 200 MLS/HR; Start 03/31/19 at 23:00 Metronidazole 100 ml @ 100 mls/hr Q6 IVPB Last administered on 04/03/19 05:42; Admin Dose 100 MLS/HR; Start 04/01/19 at 00:00 Docusate Sodium (Colace) 100 mg BID PRN PO CONSTIPATION Last administered on 04/02/19 08:24; Admin Dose 100 MG; Start 04/01/19 at 10:00 Polyethylene Glycol (Miralax) 17 gm DAILY PO Last administered on 04/02/19 08: 24; Admin Dose 17 GM; Start 04/01/19 at 10:00 Ergocalciferol (Drisdol) 1 unit Mo@0900 PO ; Start 04/04/19 at 09:00 Pantoprazole (Protonix Tab) 40 mg DAILY@0600 PO Last administered on 04/03/19 05:42; Admin Dose 40 MG; Start 04/01/19 at 11:30 Enalapril Maleate (Vasotec) 20 mg QHS PO Last administered on 04/02/19 20:53; Admin Dose 20 MG; Start 04/01/19 at 21:00 Hydrochlorothiazide (Hydrochlorothiazide) 12.5 mg QHS PO Last administered on 04/02/19 20:53; Admin Dose 12.5 MG; Start 04/01/19 at 21:00 Loratadine (Claritin) 10 mg DAILY PRN PO ALLERGIC REACTION; Start 04/01/19 at 13:00 Bisacodyl (Dulcolax Supp) 10 mg DAILY PRN [place] CONSTIPATION Last administered on 04/01/19at 16:31; Admin Dose 10 MG; Start 04/01/19 at 16:30 Mineral Oil (Fleet Mineral Oil Enema) 133 ml DAILY PRN [place] constipation; Start 04/01/19 at 16:30 MONA SOLIS MD April 03, 2019 10:52
[2019-04-03 13:58] VITALS: BP 139/72; PULSE 72; RESP 16
[2019-04-03] MEDS ORDERED: metroNIDAZOLE 500 MG TAB PO SCH (14:00)
[2019-04-03] MEDS ORDERED: METR500T PO (15:53)
[2019-04-03] MEDS ORDERED: CIPR500T4 PO (15:53)
--- NOTE | 2019-04-03 15:57 | PDOCDIS ---
Discharge Instructions DIAGNOSIS Discharge Diagnosis 1. Acute diverticulitis- improving 2. Constipation- resolved 3. hypertension CONDITION [id number] Patient Condition: [id number] Stable HOME CARE INSTRUCTIONS: [id number] Diet Instructions: [id number] Low Fat /Cholesterol [id number] Special Diet: [id number] bland diet ACTIVITY: [id number] Activity Restrictions: [id number] No Restrictions FOLLOW UP/APPOINTMENTS Follow-up Plan 1. Follow up with your primary care physician in 1-2 weeks 2. When you reschedule your colonoscopy, make sure to tell the office that you were in the hospital for Diverticulitis so they can schedule appropriately 3. Avoid heavily spiced foods for the next 2 weeks and try and avoid foods with seeds as much as possible to avoid irritation in your colon 4. Continue Ciprofloxacin twice a day and Flagyl three times a day starting 04/04 until prescription is complete 5. If experiencing any concerning symptoms, please return to the emergency department MONA SOLIS MD April 03, 2019 15:57
--- NOTE | 2019-04-03 16:02 | DS ---
Date/Time of Note Date/Time of Note DATE: 04/03/19 TIME: 15:58 Discharge Summary Admission/Discharge Info Admit Date/Time March 31, 2019 at 22:32 Discharge Date/Time 04/03/19 Discharge Diagnosis 1. Acute diverticulitis- improving 2. Constipation- resolved 3. hypertension Patient Condition: Stable Hx of Present Illness Chief complaint: Abdominal pain This is a 48-year female with a history of hypertension as well as constipation who presented to the emergency department complaining of abdominal pain x1 week. Patient reported abdominal pain across her lower abdomen and a ball-like s ensation in her left side. She reports that she has been dealing with constipation for sometimes and usually takes MiraLAX. She did report that she took MiraLAX recently but it seemed to aggravate her symptoms. She does follow with a GI doctor. She does have an upcoming colonoscopy with her GI doctor in April. She did report subjective fever at home as well as nausea and vomiting. Allergies: Nuts Hospital Course Patient was admitted for treatment of acute diverticulitis and was kept NPO and given IVF. She was also complaining of constipation and given stool softeners. Patients pain improved and diet was advanced with tolerance. Patient had BMs and pain resolved. Patient denies any further fevers or constipation. She was counseled about following a bland diet for the next 1-2 weeks. Patients presenting symptoms improved significantly and she was discharged with PO antibiotics in good condition. Home Meds Reported Medications Polyethylene Glycol 3350 ([id number]) 238 Gm Powder, 238 GM PO DAILY PRN for CONSTIPATION 04/01/19 Oxybutynin Chloride* (Ditropan*) 5 Mg Tab, 5 MG PO DAILY for 30 Days, #30 04/01/19 Hydrochlorothiazide (Hydrochlorothiazide) 12.5 Mg Capsule, 12.5 MG PO DAILY 04/01/19 Enalapril Maleate* (Enalapril Maleate*) 20 Mg Tablet, 20 MG PO DAILY for 30 Days, #30 04/01/19 Ergocalciferol (Vitamin D2) (VITAMIN D2) 50,000 Unit Capsule, 1 CAP PO Q7D for QMONDAY 04/01/19 Pantoprazole* (Pantoprazole*) 40 Mg Tablet.dr, 40 MG PO DAILY for 30 Days, #30 04/01/19 Loratadine* (Loratadine*) 10 Mg Tablet, 10 MG PO DAILY for 30 Days, #30 04/01/19 Diphenhydramine Hcl (Banophen) 25 Mg Capsule, 25 MG PO TID, CAP 04/15/18 Ibuprofen* (Advil*) 200 Mg Capsule, 200 MG PO Q6H PRN for PAIN, CAP 04/15/18 Discontinued Reported Medications Acetaminophen* (Acetaminophen*) 500 MG Extra Strength Tablet, 500 MG PO Q4H PRN for PAIN AND OR ELEVATED TEMP, TAB 04/15/18 Amlodipine Besylate* (Amlodipine Besylate*) 10 Mg Tablet, 10 MG PO DAILY, #30 TAB 04/15/18 Discontinued Scripts Acetamin/Butalbital/Caffeine* (Fioricet*) [id number] Tab, 1 TAB PO Q6H PRN for PAIN, #15 TAB Prov:PARAMJIT DUMONT MD 04/16/18 Follow-up Plan 1. Follow up with your primary care physician in 1-2 weeks 2. When you reschedule your colonoscopy, make sure to tell the office that you were in the hospital for Diverticulitis so they can schedule appropriately 3. Avoid heavily spiced foods for the next 2 weeks and try and avoid foods with seeds as much as possible to avoid irritation in your colon 4. Continue Ciprofloxacin twice a day and Flagyl three times a day starting tomorrow, 04/04 until prescription is complete 5. If experiencing any concerning symptoms, please return to the emergency department Primary Care Provider Not On Staff Doctor Time spent on discharge: > 30 minutes Pending Labs Laboratory Tests Test 04/03/19 05:12 White Blood Count 10.4 10^3/ul (4.8-10.8) Red Blood Count 3.97 10^6/ul (4.20-5.40) Hemoglobin 10.8 g/dl (12.0-16.0) Hematocrit 33.7 % (37.0-47.0) Mean Corpuscular Volume 84.9 fl (82.0-101.0) Mean Corpuscular Hemoglobin 27.2 pg (29.0-33.0) Mean Corpuscular Hemoglobin Concent 32.0 g/dl (32.0-37.0) Red Cell Distribution Width 13.2 % (11.5-14.5) Platelet Count 254 10^3/UL (140-415) Mean Platelet Volume 10.3 fl (7.4-10.4) Immature Granulocytes % 0.300 % (0.001-0.429) Neutrophils % 53.9 % (39.0-77.0) Lymphocytes % 37.5 % (15.0-51.0) Monocytes % 6.6 % (0.0-11.0) Eosinophils % 1.3 % (0.0-7.0) Basophils % 0.4 % (0.0-2.0) Nucleated Red Blood Cells % 0.0 /100WBC (0.0-0.0) Immature Granulocytes # 0.030 10^3/ul (0.0-0.031) Neutrophils # 5.6 10^3/ul (1.6-7.5) Lymphocytes # 3.9 10^3/ul (0.8-2.9) Monocytes # 0.7 10^3/ul (0.3-0.9) Eosinophils # 0.1 10^3/ul (0.0-0.5) Basophils # 0.0 10^3/ul (0.0-0.1) Nucleated Red Blood Cells # 0.0 10^3/ul (0.0-0.0) MONA SOLIS MD April 03, 2019 16:02
[2019-04-03] MEDS ORDERED: CIPROFLOXACIN 500 MG TAB PO SCH (18:00)
[2019-04-04] MEDS ORDERED: ERGOCALCIFEROL 50,000 UNIT CAP PO SCH (09:00)
== END 2019-04-03 17:43 | disposition home or self-care (01) | DRG 392 ==
LOC: E/R 18:11 → PP2 22:32
PROVIDERS: ADMIT Family Medicine; ATTEND Internal Medicine
DX: K57.32 Diverticulitis of large intestine without perforation or abscess without bleeding (principal); I10 Essential (primary) hypertension; K59.00 Constipation, unspecified; E66.9 Obesity, unspecified; Z68.33 Body mass index [BMI] 33.0-33.9, adult
CPT/HCPCS: 74176; 80053; 80061; 81001; 81025; 83036; 83690; 83735; 84443; 85025; 93005; 96374; 96375; 96376; J0744; J1885; J2060; J2270; J2405; J7030